=== PATIENT | female | born 1980 | race African-American/Black ===

== ENCOUNTER 2022-01-12 03:28 | Emergency (ER) | payer MEDICAID ==
[~2022-01-12] VITALS: Ht 170.2 cm; Wt 60.0 kg
[2022-01-12] MEDS ORDERED: LORAZEPAM 2MG/ML CPJ IV ONE (04:15)
[2022-01-12] MEDS ORDERED: OLANZAPINE 10 MG/VIAL IM ONE (04:15)
[2022-01-12 04:43] LABS: BASOPHILS % 1.3 % (0.0-2.0); EOSINOPHILS % 1.8 % (0.0-5.0); HEMATOCRIT. 27.5 % (36.0-48.0); HEMOGLOBIN. 8.4 g/dL (12.0-16.0); LYMPHOCYTES % 19.8 % (20.0-50.0); MEAN CORPUSCULAR HEMOGLOBIN 19.6 pg (28.0-32.0); MEAN CORPUSCULAR VOLUME 63.9 fL (81.0-99.0); MEAN PLATELET VOLUME 6.2 fl (7.4-10.4); MONOCYTES % 7.8 % (2.0-8.0); NEUTROPHILS % 69.3 % (40.0-76.0); PLATELET 392 x1000/uL (130-400); RED CELL DISTRIBUTION WIDTH 18.8 % (11.6-14.6)
[2022-01-12 04:58] LABS: CHLORIDE 108 mEq/L (98-107)
[2022-01-12 05:01] LABS: HCG SCREEN NEGATIVE
[2022-01-12 05:03] LABS: ETHANOL BLOOD < 10 mg/dL
[2022-01-12 05:07] LABS: PLATELET ESTIMATE NORMAL
[2022-01-13] MEDS: OLANZAPINE 5MG TABLET ODT PO SCH ×2 (10:00→21:00)
[2022-01-13 19:58] LABS: CLARITY URINE CLEAR (CLEAR); COLOR URINE ORANGE (YELLOW); KETONES URINE NEGATIVE (NEGATIVE); LEUKOCYTE ESTERASE URINE TRACE (NEGATIVE); NITRITE URINE NEGATIVE (NEGATIVE); OCCULT BLOOD URINE 3+ (NEGATIVE); PH URINE 7.5 (4.5-8.0); PROTEIN URINE 1+ (NEGATIVE); SPECIFIC GRAVITY URINE 1.021 (1.005-1.030)
[2022-01-14] MEDS: OLANZAPINE 5MG TABLET ODT PO SCH ×2 (09:00→21:00)
[2022-01-14 12:24] LABS: *BENZODIAZEPINES SCREEN URINE NEGATIVE (NEGATIVE); OPIATES URINE SCREEN NEGATIVE (NEGATIVE); PHENCYCLIDINE URINE SCREEN PRESUMTIVE POSITIVE (NEGATIVE)
[2022-01-14 12:26] LABS: *AMPHETAMINES SCREEN URINE NEGATIVE (NEGATIVE)
[2022-01-14 12:29] LABS: *COCAINE SCREEN URINE PRESUMTIVE POSITIVE (NEGATIVE); CANNABINOID URINE SCREEN PRESUMTIVE POSITIVE (NEGATIVE)
[2022-01-14 19:54] VITALS: BP 0/0
== END 2022-01-15 08:48 | disposition home or self-care (01) ==
LOC: ER 03:28
DX: R45.851 Suicidal ideations (principal); I49.9 Cardiac arrhythmia, unspecified; Z20.822 Contact with and (suspected) exposure to COVID-19
CPT/HCPCS: 36415; 80053; 80307; 80320; 80329; 84703; 85025; 87426; 93005; 96372; 96374; 99285; C9803; J2060; J3490; U0003; U0005; G0480

== ENCOUNTER 2022-03-28 21:33 | Emergency (ER) | payer OTHER ==
[~2022-03-28] VITALS: Ht 165.1 cm; Wt 57.0 kg
[2022-03-28 23:33] LABS: HEMATOCRIT. 32.1 % (36.0-48.0); HEMOGLOBIN. 9.9 g/dL (12.0-16.0); MEAN CORPUSCULAR VOLUME 65.1 fL (81.0-99.0); MEAN PLATELET VOLUME 6.2 fl (7.4-10.4); PLATELET 281 x1000/uL (130-400); RED BLOOD CELL COUNT 4.93 mill/uL (4.2-5.4); RED CELL DISTRIBUTION WIDTH 19.6 % (11.6-14.6)
[2022-03-28 23:42] LABS: CHLORIDE 103 mEq/L (98-107)
[2022-03-29 00:56] LABS: CLARITY URINE CLEAR (CLEAR); COLOR URINE YELLOW (YELLOW); KETONES URINE TRACE (NEGATIVE); LEUKOCYTE ESTERASE URINE 1+ (NEGATIVE); NITRITE URINE NEGATIVE (NEGATIVE); OCCULT BLOOD URINE TRACE (NEGATIVE); PROTEIN URINE TRACE (NEGATIVE); SPECIFIC GRAVITY URINE 1.033 (1.005-1.030)
[2022-03-29 01:05] VITALS: BP 133/51
[2022-03-29 01:11] LABS: HCG SCREEN NEGATIVE
[2022-03-29 04:59] LABS: PLATELET ESTIMATE NORMAL
== END 2022-03-29 03:44 | disposition left against medical advice (07) ==
LOC: ER 21:33
DX: K63.89 Other specified diseases of intestine (principal)
CPT/HCPCS: 36415; 74176; 80053; 80320; 81003; 81025; 84703; 85025; 99284; G0480